=== PATIENT | female | born 1960 | race Caucasian/White ===

== ENCOUNTER → 2020-02-11 | Outpatient (CLI) | payer MEDICAID, SELFPAY ==
[2020-01-13 14:35] VITALS: BMI 46.8
--- NOTE | 2020-02-11 12:35 | ECHOCS_ITS ---
Reason For Study: Dyspena on exertion Procedure This was a 2D Doppler, Color Flow transthoracic echocardiogram. The study was technically difficult. Contrast injection was performed. Exam performed in department. Left Ventricle Normal LV size. Moderate concentric left ventricular hypertrophy. Left ventricular systolic function is normal. The estimated ejection fraction is 65 %. Stage 1 diastolic dysfunction. No regional wall motion abnormalities noted. Right Ventricle Normal RV size. Normal systolic function. Atria Normal left atrium. Normal right atrium. Mitral Valve Mitral valve not well visualized. Tricuspid Valve The tricuspid valve is not well visualized. Mild (1+) tricuspid valve insufficiency. Pulmonary artery systolic pressure is 26 mmHg. Aortic Valve The aortic valve is not well visualized. Pulmonic Valve The pulmonic valve is not well visualized. Great Vessels Normal aortic root. The pulmonary artery is normal size. Normal inferior vena cava. Pericardium/Pleural No pericardial effusion. Medication 22 gauge I.V. with prn adaptor inserted into right arm. Diluted definity 3ml given slow IV push to enhance endocardial definition. MMode/2D Measurements & Calculations LVIDd: 4.2 cm IVSd: 1.6 cm Ao root diam: 3.6 cm LVIDs: 2.3 cm LVPWd: 1.7 cm LA dimension: 4.1 cm FS: 45.9 % LAV(MOD-bp): 43.7 ml LA A4 area: 16.0 cm2 RA A4 area: 11.4 cm2 LAV(MOD-bp) Indexed: 16.8 ml/m2 LAV(MOD-sp2): 48.8 ml LAV(MOD-sp4): 39.0 ml Time Measurements MV dec time: 0.29 sec Doppler Measurements & Calculations MV E max edouard: 79.6 cm/sec Lat Peak E' Edouard: 8.5 cm/sec Med Peak E' Edouard: 6.1 cm/sec MV A max edouard: 87.7 cm/sec E/E' lat: 9.3 E/E' med: 13.1 MV E/A: 0.91 MV V2 max: 94.4 cm/sec MV P1/2t max edouard: 91.5 cm/sec Ao V2 max: 143.5 cm/sec MV max P.6 mmHg MV P1/2t: 142.3 msec Ao max P.2 mmHg MV V2 mean: 59.9 cm/sec MV dec slope: 188.4 cm/sec2 MV mean P.6 mmHg MV V2 VTI: 37.0 cm MVA(P1/2t): 1.5 cm2 LV V1 max: 116.9 cm/sec PA V2 max: 118.5 cm/sec TR max eduoard: 238.8 cm/sec LV V1 max P.5 mmHg TR max P.8 mmHg Interpretation Summary Normal LV size. Moderate concentric left ventricular hypertrophy. Left ventricular systolic function is normal. The estimated ejection fraction is 65 %. Stage 1 diastolic dysfunction. Contrast injection was performed. Ordering Physician: Hira Javier Referring Physician: Carissa Garcia Performed By: Sincere Liang RCS
== END | disposition home or self-care (01) ==
LOC: CVS 12:35
PROVIDERS: PCP Nurse Practitioner Adult Health; Referring Provider Internal Medicine Cardiovascular Disease; Visit Provider Internal Medicine Cardiovascular Disease
DX: I10 Essential (primary) hypertension (principal); R06.00 Dyspnea, unspecified
CPT/HCPCS: 93306; Q9957; A4216; C8929